=== PATIENT | female | born 1960 | race Caucasian/White ===

== ENCOUNTER 2017-10-25 17:16 | Observation (INO) | payer SELFPAY ==
[~2017-10-25 17:16] MED LIST: ISOVUE-370 76%-LOCM 1 ML ONE
--- NOTE | 2017-10-25 18:22 | RAD ---
SINGLE VIEW CHEST: Date: 10/25/17 COMPARISON: 10/27/14. HISTORY: Chest pain. FINDINGS: Single view of the chest shows volume loss in the left thorax with multiple surgical clips. The patie nt is likely status post left pneumonectomy. The cardiomediastinal silhouette cannot be evaluated sec ondary to opacity of the left thorax. No right-sided infiltrate is seen. No right pleural effusion is present. IMPRESSION: Postsurgical changes from left pneumonectomy without acute cardiopulmonary process. POS: [facility]
[2017-10-25 18:32] LABS: #Basophils 0.1 thou/uL (0.0-0.2); #Eosinphils 0.1 thou/uL (0.0-0.7); #Lymphocytes 3.4 thou/uL (1.20-3.40); #Neutrophils 8.3 thou/uL (1.40-6.50); %Basophils 0.4 % (0.0-1.0); %Eosinophils 0.6 % (0.0-10.0); %Lymphocytes 26.2 % (21.0-51.0); %Monocytes 7.9 % (0.0-10.0); %Neutrophils 64.8 % (42.0-75.0); Hemoglobin 13.1 g/dL (12.0-16.0); Mean Corpuscular HGB CONC 32.8 g/dL (32.0-36.0); Mean Corpuscular Volume 79.2 fL (78.0-98.0); Mean Platelet Volume 7.9 fL (7.4-10.4); Platelet Count 467 thou/uL (130-400); RBC Distribution Width 18.1 % (11.5-14.5); Red Blood Cell (RBC) Count 5.06 mill/uL (4.20-5.40); White Blood Cell (WBC) Count 12.8 thou/uL (4.8-10.8)
[2017-10-25] MEDS ORDERED: Aspirin 325 MG TAB ONE (18:48)
[2017-10-25] MEDS ORDERED: Ondansetron ODT 4 MG TAB ONE ×2 (18:49→20:22)
[2017-10-25 18:52] LABS: ALT (SGPT) 9 U/L (8-55); AST (SGOT) 11 U/L (5-34); Albumin 4.1 g/dL (3.5-5.0); Alkaline Phosphatase 77 U/L (40-150); Anion Gap 14 mmol/L (10-20); BUN (Urea Nitrogen) 12 mg/dL (9.8-20.1); Bilirubin, Total 0.3 mg/dL (0.2-1.2); CK (CPK) 19 U/L (29-168); Calc. Creatinine Clearance 0 mL/min (70-130); Calcium 9.4 mg/dL (7.8-10.44); Carbon Dioxide 27 mmol/L (22-29); Chloride 100 mmol/L (98-107); Estimated GFR-MDRD Greater than 90; Globulin 3.4 g/dL (2.4-3.5); Glucose 94 mg/dL (70-105); Lipase 11 U/L (8-78); Potassium 4.2 mmol/L (3.5-5.1); Protein, Total 7.5 g/dL (6.0-8.3); Sodium 137 mmol/L (136-145)
[2017-10-25 18:56] LABS: CKMB 2.1 ng/mL (0-6.6); Troponin I Less than 0.010 ng/mL (< 0.028)
[2017-10-25] MEDS ORDERED: Nitroglycerin 2% Ointment 1 INCH/1 GM Packet ONE ×2 (20:22→20:40)
--- NOTE | 2017-10-25 20:29 | CT ---
CT PULMONARY ANGIOGRAM WITH IV CONTRAST AND 3D POST PROCESSING: History: Dyspnea. FINDINGS: There are post op changes of left sided pneumonectomy. The main pulmonary artery and the right pulmon citlaly artery vasculature demonstrate good contrast opacification without filling defects or pulmonary e mbolism. The thoracic aorta is well opacified without aneurysmal dissection. No pericardial or right pleural effusions are seen. There are emphysematous changes in the right lung. IMPRESSION: No CT evidence of pulmonary embolism. POS: [facility]
[2017-10-25] MEDS ORDERED: Nitroglycerin 0.4 MG TAB (25 Tab Bottle) PO PRN (20:47)
[2017-10-25] MEDS ORDERED: Ondansetron HCl/PF 4 MG/2 ML Vial IVP PRN (20:48)
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
[2017-10-25 21:50] LABS: Troponin I 0.011 ng/mL (< 0.028)
[2017-10-25 22:12] VITALS: BMI 21.8
[2017-10-25] MEDS ORDERED: ALPRAZolam 0.25 MG TAB PO SCH (23:45)
[2017-10-25] MEDS ORDERED: traMADol HCl 50 MG TAB PO PRN (23:45)
[2017-10-26 01:11] LABS: Troponin I 0.011 ng/mL (< 0.028)
[2017-10-26] MEDS: Ketorolac Tromethamine 30 MG/ML VIAL IVP PRN ×2 (01:34→07:13)
[2017-10-26 05:31] LABS: #Eosinphils 0.2 thou/uL (0.0-0.7); #Lymphocytes 3.7 thou/uL (1.20-3.40); #Monocytes 1.2 thou/uL (0.11-0.59); #Neutrophils 6.8 thou/uL (1.40-6.50); %Basophils 0.4 % (0.0-1.0); %Eosinophils 1.6 % (0.0-10.0); %Lymphocytes 30.9 % (21.0-51.0); %Neutrophils 57.2 % (42.0-75.0); Hemoglobin 10.7 g/dL (12.0-16.0); Mean Corpuscular HGB CONC 31.7 g/dL (32.0-36.0); Mean Corpuscular Hemoglobin 25.4 pg (27.0-31.0); Mean Corpuscular Volume 80.1 fL (78.0-98.0); Mean Platelet Volume 8.1 fL (7.4-10.4); Platelet Count 365 thou/uL (130-400); Red Blood Cell (RBC) Count 4.22 mill/uL (4.20-5.40); White Blood Cell (WBC) Count 11.9 thou/uL (4.8-10.8)
[2017-10-26 06:13] LABS: Anion Gap 12 mmol/L (10-20); BUN (Urea Nitrogen) 13 mg/dL (9.8-20.1); Calc. Creatinine Clearance 102 mL/min (70-130); Calcium 8.7 mg/dL (7.8-10.44); Carbon Dioxide 24 mmol/L (22-29); Chloride 106 mmol/L (98-107); Estimated GFR-MDRD Greater than 90; Glucose 92 mg/dL (70-105); Sodium 138 mmol/L (136-145)
[2017-10-26] MEDS ORDERED: Aspirin 325 MG TAB PO SCH (08:00)
[2017-10-26] MEDS ORDERED: Prevnar 13-Val Conj/PF 0.5 ML SYRINGE IM ONE (09:00)
[2017-10-26] MEDS ORDERED: ALPRAZolam 0.25 MG TAB PO SCH (09:00)
[2017-10-26] MEDS ORDERED: Enoxaparin Sodium 40 MG/0.4 ML SYRINGE SC SCH (09:00)
[2017-10-26 12:41] VITALS: BP 139/81; TEMP 99.3
[2017-10-26] MEDS ORDERED: Regadenoson 0.4 MG/5 ML SYRINGE ONE (13:29)
--- NOTE | 2017-10-26 13:42 | NM ---
CARDIAC SPECT: CLINICAL HISTORY: 57-year-old female with chest pain. TECHNIQUE: A myocardial perfusion scan was performed using the single isotope one day protocol with technetium-9 9m sestamibi. 9 mCi were injected intravenously for the rest exam followed by 32 mCi for the stress e xam. Pharmacologic stress with Lexiscan was monitored and interpreted by Dr. Gillis. FINDINGS: Homogeneous tracer distribution is seen in the myocardial segments on stress and rest images without fixed or reversible defects. GATED SPECT LVEF: 81%. WALL MOTION EXAM: Normal. IMPRESSION: Normal myocardial perfusion scan. POS: [facility]
--- NOTE | 2017-10-26 22:34 | DIS ---
DATE OF ADMISSION: 10/25/2017 DATE OF DISCHARGE: 10/26/2017 PRIMARY CARE PROVIDER: None. DISCHARGE DIAGNOSIS: Chest pain. CONDITION OF PATIENT ON THE DAY OF DISCHARGE: Stable. I assessed Ms. Oquendo on the day of discharge . She denies any chest pain or shortness of breath. Vital signs are stable. S1 and S2 are heard, r egular. Lungs are clear to auscultation bilaterally. HOSPITAL COURSE: Ms. Oquendo is a pleasant 57-year-old lady, who was admitted to [facility] on observation status on 10/25/2017. CT angiogram of the chest did not show any eviden ce of pulmonary embolism. She also had a nuclear stress test, which was normal. Left ventricular ej ection fraction was 81%. DISCHARGE MEDICATIONS: Tylenol #3 one tablet every 8 hours as needed, with a prescription for 15 tab lets to be dispensed. On the day of discharge, she has white count 11,900, hemoglobin 10.7, platelet count 365,000, normal electrolytes, creatinine 0.58, and calcium 8.7. Her lipase, during this admission, was normal. BNP was also normal. DISCHARGE DESTINATION: Home.
--- NOTE | 2017-10-30 10:08 | STRESS ---
Acquisition Time: 2017-10-26 11:09:57 Total Exercise Time: 00:01:00 Test Indications: CHEST PAIN Medications: Protocol: LEXISCAN Max HR: 113 BPM 69% of Pred: 162 BPM Max BP: 134/082 mmHG Max Work Load: 1.0 METS RESTING ECG: NORMAL SINUS RHYTHM AT 88 BPM SYMPTOMS: SHORTNESS OF BREATH, NECK PAIN NORMAL BP RESPONSE ECTOPY: NONE ECG STRESS: NO SIGNIFICANT CHANGES INTERPRETATION: AWAIT NUCLEAR IMAGES FOR DEFINITIVE DIAGNOSIS Confirmed by JESSICA ZHAO ([id number]), assignment desk editor LAURA KOROMA ([id number]) on 10/30/2017 10:07:58 AM Referred By: MD Jah SCOTT Confirmed By:JESSICA ZHAO
== END 2017-10-26 15:45 | disposition home or self-care (01) ==
LOC: ERS 17:16 → 2SW 20:28
PROVIDERS: ADMIT Hospitalist; ATTEND Hospitalist
DX: R07.9 Chest pain, unspecified (principal); Z88.5 Allergy status to narcotic agent; Z85.118 Personal history of other malignant neoplasm of bronchus and lung
CPT/HCPCS: 36415; 71045; 71275; 78452; 80048; 80053; 82553; 83690; 83880; 84484; 85025; 87040; 90471; 90670; 93005; 93017; 94760; 96361; 96372; 96374; 96375; 96376; 99406; A9500; G0009; G0378; J1650; J1885; J2270; J2785; Q0162

== ENCOUNTER 2017-10-27 20:36 | Emergency (ER) | payer SELFPAY ==
--- NOTE | 2017-10-27 21:37 | RAD ---
RADIOGRAPH CHEST 1 VIEW: Date: 10/27/17 Time: 9:03 p.m. HISTORY: 57-year-old female with hemoptysis and pressure type of chest pain. COMPARISON: 10/25/17 FINDINGS: Total opacification of left hemithoracic cavity, with ex vacuo midline shift of the trachea, mediasti num, and heart to the left. Multiple surgical clips overlie the left hemithorax. Mild compensatory hy perinflation of the right lung. Right lung is clear of pulmonary edema and acute infiltrate. Right la teral costophrenic angle is sharp. No interval change overall. IMPRESSION: 1. Status post total left pneumonectomy. 2. No acute findings. RAFAEL [] POS: [facility]
[2017-10-27 22:33] LABS: ALT (SGPT) 7 U/L (8-55); AST (SGOT) 13 U/L (5-34); Albumin 3.8 g/dL (3.5-5.0); Alkaline Phosphatase 76 U/L (40-150); Anion Gap 14 mmol/L (10-20); BUN (Urea Nitrogen) 15 mg/dL (9.8-20.1); Bilirubin, Total Less than 0.2 mg/dL (0.2-1.2); Calc. Creatinine Clearance 0 mL/min (70-130); Calcium 8.8 mg/dL (7.8-10.44); Carbon Dioxide 24 mmol/L (22-29); Chloride 104 mmol/L (98-107); Estimated GFR-MDRD Greater than 90; Globulin 2.9 g/dL (2.4-3.5); Glucose 109 mg/dL (70-105); Potassium 4.4 mmol/L (3.5-5.1); Protein, Total 6.7 g/dL (6.0-8.3); Sodium 138 mmol/L (136-145)
[2017-10-27] MEDS ORDERED: Fentanyl 100 MCG/2 ML VIAL ONE (22:34)
[2017-10-27 22:40] LABS: #Basophils 0.1 thou/uL (0.0-0.2); #Eosinphils 0.1 thou/uL (0.0-0.7); #Lymphocytes 2.9 thou/uL (1.20-3.40); #Monocytes 0.9 thou/uL (0.11-0.59); #Neutrophils 7.7 thou/uL (1.40-6.50); %Basophils 0.7 % (0.0-1.0); %Eosinophils 0.9 % (0.0-10.0); %Lymphocytes 25.1 % (21.0-51.0); %Monocytes 7.7 % (0.0-10.0); %Neutrophils 65.6 % (42.0-75.0); Hemoglobin 11.2 g/dL (12.0-16.0); Mean Corpuscular HGB CONC 32.4 g/dL (32.0-36.0); Mean Corpuscular Volume 80.2 fL (78.0-98.0); Mean Platelet Volume 7.9 fL (7.4-10.4); Platelet Count 366 thou/uL (130-400); RBC Distribution Width 18.3 % (11.5-14.5); White Blood Cell (WBC) Count 11.7 thou/uL (4.8-10.8)
[2017-10-27 22:49] LABS: PTT 26.3 SEC (22.9-36.1); Prothrombin Time 12.8 SEC (12.0-14.7)
[2017-10-27] MEDS ORDERED: guaiFENesin/DM ER PO SCH (23:00)
[2017-10-27] MEDS ORDERED: Azithromycin 500 MG VIAL ONE (23:08)
[2017-10-27 23:28] LABS: Bilirubin Negative (Negative); Blood, Urine Negative (Negative); Clarity CLEAR (Clear); Glucose, Urine (Dipstick) Negative (Negative); Leukocyte Negative (Negative); Nitrite Negative (Negative); Protein, Urine (Dipstick) Negative (Neg-Trace); Specific Gravity, Urine 1.021 (1.002-1.036)
[2017-10-28] MEDS ORDERED: Ondansetron ODT 4 MG TAB ONE (00:08)
== END 2017-10-28 00:24 | disposition home or self-care (01) ==
LOC: ERS 20:36
DX: J20.9 Acute bronchitis, unspecified (principal); J43.9 Emphysema, unspecified; R04.2 Hemoptysis; M54.9 Dorsalgia, unspecified; G89.29 Other chronic pain; F17.210 Nicotine dependence, cigarettes, uncomplicated; Z71.6 Tobacco abuse counseling
CPT/HCPCS: 36415; 71045; 80053; 81003; 83605; 85025; 85610; 85730; 86850; 86900; 86901; 87040; 87149; 94640; 96365; 96375; 99406; J0456; J3010; J7620; Q0162

== ENCOUNTER 2017-12-23 01:18 | Emergency (ER) | payer SELFPAY ==
[2017-12-23] MEDS ORDERED: Morphine 4 MG/ML VIAL ONE (01:44)
[2017-12-23] MEDS ORDERED: Ondansetron HCl/PF 4 MG/2 ML Vial ONE (01:44)
[2017-12-23 01:54] LABS: Bilirubin Negative (Negative); Blood, Urine Negative (Negative); Clarity CLEAR (Clear); Glucose, Urine (Dipstick) Negative (Negative); Leukocyte Negative (Negative); Nitrite Negative (Negative); Protein, Urine (Dipstick) Negative (Neg-Trace); Specific Gravity, Urine 1.012 (1.002-1.036); Urobilinogen 0.2 mg/dL (0.2-1.0)
[2017-12-23 03:11] LABS: #Basophils 0.1 thou/uL (0.0-0.2); #Eosinphils 0.1 thou/uL (0.0-0.7); #Lymphocytes 2.2 thou/uL (1.20-3.40); #Neutrophils 5.3 thou/uL (1.40-6.50); %Basophils 0.6 % (0.0-1.0); %Eosinophils 1.7 % (0.0-10.0); %Lymphocytes 25.4 % (21.0-51.0); %Monocytes 11.2 % (0.0-10.0); %Neutrophils 61.1 % (42.0-75.0); Mean Corpuscular HGB CONC 32.5 g/dL (32.0-36.0); Mean Corpuscular Hemoglobin 28.3 pg (27.0-31.0); Mean Corpuscular Volume 87.1 fL (78.0-98.0); Mean Platelet Volume 7.4 fL (7.4-10.4); Platelet Count 467 thou/uL (130-400); RBC Distribution Width 15.8 % (11.5-14.5); Red Blood Cell (RBC) Count 3.53 mill/uL (4.20-5.40); White Blood Cell (WBC) Count 8.7 thou/uL (4.8-10.8)
[2017-12-23] MEDS ORDERED: Dicyclomine 20 MG TAB ONE (03:19)
[2017-12-23 03:32] LABS: ALT (SGPT) 17 U/L (8-55); AST (SGOT) 10 U/L (5-34); Albumin 3.6 g/dL (3.5-5.0); Alkaline Phosphatase 113 U/L (40-150); Anion Gap 12 mmol/L (10-20); BUN (Urea Nitrogen) 11 mg/dL (9.8-20.1); Bilirubin, Total 0.2 mg/dL (0.2-1.2); Calc. Creatinine Clearance 0 mL/min (70-130); Calcium 8.7 mg/dL (7.8-10.44); Carbon Dioxide 25 mmol/L (22-29); Chloride 106 mmol/L (98-107); Estimated GFR-MDRD 90; Globulin 2.8 g/dL (2.4-3.5); Glucose 104 mg/dL (70-105); Lipase 23 U/L (8-78); Potassium 3.4 mmol/L (3.5-5.1); Protein, Total 6.4 g/dL (6.0-8.3); Sodium 140 mmol/L (136-145)
--- NOTE | 2017-12-23 09:09 | ULT ---
PRELIMINARY REPORT/[facility]/EMERGENTY AFTER-HOURS PROCEDURE US Abdomen Limited, Right Upper Quadrant CLINICAL HISTORY: 57 years old, female; Pain and signs and symptoms; Nausea; Abdominal pain; Localized; Right upper mel drant (ruq); Patient HX: Ruq pain worse after eating TECHNIQUE: Real-time ultrasound of the right upper quadrant with image documentation. COMPARISON: No relevant prior studies available. FINDINGS: Liver: Mildly enlarged. No acute findings. No mass. No intrahepatic bile duct dilation. Gallbladder: The gallbladder is contracted. Common bile duct: Unremarkable. Pancreas: Obscured by bowel gas. Right kidney: No acute findings. No stones. No solid mass. No hydronephrosis. Small cyst. IMPRESSION: No acute findings. Thank you for allowing us to participate in the care of your patient. Dictated and Authenticated by: Dk Washington MD 12/23/2017 3:24 AM Central Time ([place] & [place]) FINAL REPORT RIGHT UPPER QUADRANT ULTRASOUND: Date: 12/23/17 FINDINGS/IMPRESSION: I agree with the preliminary report given by Domingo. POS: [facility]
--- NOTE | 2017-12-23 09:13 | CT ---
PRELIMINARY REPORT/[facility]/EMERGENTY AFTER-HOURS PROCEDURE CT Abdomen and Pelvis With Intravenous Contrast CLINICAL HISTORY: 57 years old, female; Pain; Abdominal pain; Generalized; Patient HX: Right side pain x 2 days, worse tonight and worse with eating, nausea started yesterday afternoon TECHNIQUE: Axial computed tomography images of the abdomen and pelvis with intravenous contrast. Coronal reformatted images were created and reviewed. COMPARISON: No relevant prior studies available. FINDINGS: Lung bases: Left pneumonectomy. ABDOMEN: Liver: No acute findings. No mass. Gallbladder and bile ducts: The gallbladder is contracted. Pancreas: No acute findings. No ductal dilation. No mass. Spleen: No acute findings. No mass. Adrenals: No mass. Kidneys and ureters: No acute findings. No hydronephrosis. No solid mass. Stomach and bowel: No evidence of bowel obstruction. Diverticulosis. Ascending and transverse colon f ecal loading. Underdistended descending and rectosigmoid colon. PELVIS: Appendix: No findings to suggest acute appendicitis. Bladder: No acute findings. No mass. Reproductive: No acute findings. ABDOMEN and PELVIS: Intraperitoneal space: No acute findings. No free air. No significant fluid collection. Bones/joints: No acute fracture. Soft tissues: No acute findings. Vasculature: No acute findings. No abdominal aortic aneurysm. Lymph nodes: No lymphadenopathy. IMPRESSION: No acute findings. Thank you for allowing us to participate in the care of your patient. Dictated and Authenticated by: Dk Washington MD 12/23/2017 4:31 AM Central Time ([place] & [place]) FINAL REPORT CT ABDOMEN AND PELVIS WITH IV CONTRAST: Date: 12/23/17 FINDINGS/IMPRESSION: I agree with the preliminary report given by Domingo. POS: [facility]
== END 2017-12-23 04:52 | disposition home or self-care (01) ==
LOC: ERS 01:18
DX: R10.11 Right upper quadrant pain (principal); F17.210 Nicotine dependence, cigarettes, uncomplicated; Z79.899 Other long term (current) drug therapy
CPT/HCPCS: 36415; 74177; 76705; 80053; 81003; 83690; 85025; 96374; 96375; J2270; J2405

== ENCOUNTER 2018-01-10 20:51 | Emergency (ER) | payer SELFPAY ==
[2018-01-10 21:44] LABS: #Eosinphils 0.1 thou/uL (0.0-0.7); #Monocytes 0.8 thou/uL (0.11-0.59); #Neutrophils 6.1 thou/uL (1.40-6.50); %Basophils 0.4 % (0.0-1.0); %Eosinophils 1.2 % (0.0-10.0); %Monocytes 9.1 % (0.0-10.0); %Neutrophils 67.2 % (42.0-75.0); Hemoglobin 11.4 g/dL (12.0-16.0); Mean Corpuscular HGB CONC 32.8 g/dL (32.0-36.0); Mean Corpuscular Hemoglobin 28.4 pg (27.0-31.0); Mean Corpuscular Volume 86.9 fL (78.0-98.0); Mean Platelet Volume 7.6 fL (7.4-10.4); Platelet Count 382 thou/uL (130-400); RBC Distribution Width 14.5 % (11.5-14.5); Red Blood Cell (RBC) Count 4.01 mill/uL (4.20-5.40)
[2018-01-10 22:04] LABS: ALT (SGPT) 8 U/L (8-55); AST (SGOT) 11 U/L (5-34); Albumin 4.3 g/dL (3.5-5.0); Alkaline Phosphatase 104 U/L (40-150); Anion Gap 14 mmol/L (10-20); BUN (Urea Nitrogen) 5 mg/dL (9.8-20.1); Bilirubin, Total 0.3 mg/dL (0.2-1.2); Calc. Creatinine Clearance 0 mL/min (70-130); Calcium 9.5 mg/dL (7.8-10.44); Carbon Dioxide 24 mmol/L (22-29); Chloride 103 mmol/L (98-107); Estimated GFR-MDRD 90; Globulin 3.4 g/dL (2.4-3.5); Glucose 101 mg/dL (70-105); Lipase 12 U/L (8-78); Potassium 3.3 mmol/L (3.5-5.1); Protein, Total 7.7 g/dL (6.0-8.3); Sodium 138 mmol/L (136-145)
[2018-01-10 22:51] LABS: Bilirubin Negative (Negative); Blood, Urine Negative (Negative); Clarity CLEAR (Clear); Glucose, Urine (Dipstick) Negative (Negative); Leukocyte Negative (Negative); Nitrite Negative (Negative); Protein, Urine (Dipstick) Negative (Neg-Trace); Specific Gravity, Urine 1.009 (1.002-1.036); Urobilinogen 0.2 mg/dL (0.2-1.0); pH, Urine 6.5 (5.0-9.0)
[2018-01-10] MEDS ORDERED: Famotidine 20 MG TAB ONE (23:42)
[2018-01-10] MEDS ORDERED: Acetaminophen/Codeine 30-300mg Tablet ONE (23:42)
== END 2018-01-10 23:39 | disposition home or self-care (01) ==
LOC: ERS 20:51
DX: R10.11 Right upper quadrant pain (principal); F17.210 Nicotine dependence, cigarettes, uncomplicated
CPT/HCPCS: 36415; 80053; 81003; 83690; 85025; 99284